=== PATIENT | female | born 1980 | race Caucasian/White ===

== ENCOUNTER 2017-03-26 16:02 | Emergency (ER) | payer OTHER ==
[2017-03-26 16:10] VITALS: TEMP 97.7
--- NOTE | 2017-03-26 16:48 | ED ---
SOB HPI - General Chief Complaint: Shortness of Breath Stated Complaint: Difficulty Breathing Time Seen by Provider: 03/26/17 16:29 Source: patient, RN notes reviewed Mode of arrival: ambulatory Limitations: no limitations - History of Present Illness Initial Comments: 36-year-old female presents emergency Department with chief complaint of back pain on the left side that started 90 minutes ago. Patient states she had a sudden onset of back pain which seems similar to when she had a pneumothorax on the right. Patient states she does have pain with deep inspiration. Patient denies any chest pain no palpitations. Denies fever or chills. Patient states that in 1996 for spontaneous pneumothorax or bright. Patient does currently take control. Patient denies any fever or chills. Patient denies any nausea vomiting. - Related Data Home Medications Medication Instructions Recorded Confirmed Ibuprofen [Motrin] 200 - 400 mg PO Q6HR PRN 03/26/17 03/26/17 Norgestimate-Ethinyl Estradiol 1 tab PO DAILY 03/26/17 03/26/17 [Ortho Tri-Cyclen 28 Tablet] Zolpidem [Ambien] 5 - 10 mg PO HS PRN 03/26/17 03/26/17 Allergies Allergy/AdvReac Type Severity Reaction Status Date / Time Penicillins AdvReac Vomiting Verified 03/26/17 16:36 Review of Systems ROS Statement: Those systems with pertinent positive or pertinent negative responses have been documented in the HPI. ROS Other: All systems not noted in ROS Statement are negative. Past Medical History Past Medical History: No Reported History History of Any Multi-Drug Resistant Organisms: None Reported Past Surgical History: Back Surgery Additional Past Surgical History / Comment(s): chest tubes and then surgery to remove "air bubbles" from lung. left adrenal gland removed. left fallopian tube removed Past Psychological History: No Psychological Hx Reported Smoking Status: Current some day smoker Past Alcohol Use History: Occasional Past Drug Use History: None Reported General Exam Limitations: no limitations General appearance: alert, in no apparent distress Neck exam: Present: normal inspection, full ROM. Absent: tenderness, meningismus, lymphadenopathy Respiratory exam: Present: normal lung sounds bilaterally. Absent: respiratory distress, wheezes, rales, rhonchi, stridor, chest wall tenderness Cardiovascular Exam: Present: regular rate, normal rhythm, normal heart sounds. Absent: systolic murmur, diastolic murmur, rubs, gallop, clicks GI/Abdominal exam: Present: soft, normal bowel sounds. Absent: distended, tenderness, guarding, rebound, rigid Back exam: Present: full ROM. Absent: tenderness, paraspinal tenderness, vertebral tenderness Neurological exam: Present: alert, oriented X3, CN II-XII intact, reflexes normal. Absent: motor sensory deficit Course Vital Signs 03/26/17 03/26/17 03/26/17 16:06 16:31 17:11 Temperature 97.7 F Pulse Rate 80 72 73 Respiratory 18 18 18 Rate Blood Pressure 113/65 119/75 102/65 O2 Sat by Pulse 100 97 96 Oximetry Medical Decision Making - Medical Decision Making 36-year-old female presented for left-sided back pain. Patient had concerns of possible pneumothorax x-ray does not show any evidence. Patient's vitals are stable here in emergency department for 2 hours. Patient's EKG, lab work within normal limits no evidence of elevated d-dimer for PE. Patient will be discharged with muscle skeletal pain return parameters were discussed. - Lab Data Result diagrams: 03/26/17 17:09 03/26/17 17:09 Lab Results 03/26/17 03/26/17 03/26/17 Range/Units 17:09 17:09 17:09 WBC 7.0 (3.8-10.6) k/uL RBC 3.93 (3.80-5.40) m/uL Hgb 13.1 (11.4-16.0) gm/dL Hct 37.7 (34.0-46.0) % MCV 95.9 (80.0-100.0) fL MCH 33.3 (25.0-35.0) pg MCHC 34.8 (31.0-37.0) g/dL RDW 12.6 (11.5-15.5) % Plt Count 273 (150-450) k/uL Neutrophils % 54 % Lymphocytes % 35 % Monocytes % 6 % Eosinophils % 2 % Basophils % 1 % Neutrophils # 3.8 (1.3-7.7) k/uL Lymphocytes # 2.5 (1.0-4.8) k/uL Monocytes # 0.5 (0-1.0) k/uL Eosinophils # 0.2 (0-0.7) k/uL Basophils # 0.0 (0-0.2) k/uL D-Dimer 0.20 (<0.60) mg/L FEU Sodium 139 (137-145) mmol/L Potassium 4.1 (3.5-5.1) mmol/L Chloride 107 (98-107) mmol/L Carbon Dioxide 23 (22-30) mmol/L Anion Gap 9 mmol/L BUN 11 (7-17) mg/dL Creatinine 0.62 (0.52-1.04) mg/dL Est GFR (MDRD) Af Amer >60 (>60 ml/min/1.73 sqM) Est GFR (MDRD) Non-Af >60 (>60 ml/min/1.73 sqM) Glucose 71 L (74-99) mg/dL Calcium 9.3 (8.4-10.2) mg/dL Troponin I (0.000-0.034) ng/mL 03/26/17 Range/Units 17:09 WBC (3.8-10.6) k/uL RBC (3.80-5.40) m/uL Hgb (11.4-16.0) gm/dL Hct (34.0-46.0) % MCV (80.0-100.0) fL MCH (25.0-35.0) pg MCHC (31.0-37.0) g/dL RDW (11.5-15.5) % Plt Count (150-450) k/uL Neutrophils % % Lymphocytes % % Monocytes % % Eosinophils % % Basophils % % Neutrophils # (1.3-7.7) k/uL Lymphocytes # (1.0-4.8) k/uL Monocytes # (0-1.0) k/uL Eosinophils # (0-0.7) k/uL Basophils # (0-0.2) k/uL D-Dimer (<0.60) mg/L FEU Sodium (137-145) mmol/L Potassium (3.5-5.1) mmol/L Chloride (98-107) mmol/L Carbon Dioxide (22-30) mmol/L Anion Gap mmol/L BUN (7-17) mg/dL Creatinine (0.52-1.04) mg/dL Est GFR (MDRD) Af Amer (>60 ml/min/1.73 sqM) Est GFR (MDRD) Non-Af (>60 ml/min/1.73 sqM) Glucose (74-99) mg/dL Calcium (8.4-10.2) mg/dL Troponin I <0.012 (0.000-0.034) ng/mL 03/26/17 18:07 EKG performed at 17:15 normal sinus rhythm, rate of 68 NC interval 162 QS duration 112 QT/QTC 374/397 Disposition Clinical Impression: Thoracic back pain, Pleuritic pain Disposition: HOME SELF-CARE Condition: Stable Instructions: Thoracic Pain (ED) Additional Instructions: Please return to the Emergency Department if symptoms worsen or any other concerns. Referrals: Kee Puga MD [Primary Care Provider] - 1-2 days Time of Disposition: 18:07
--- NOTE | 2017-03-26 16:56 | XR ---
EXAMINATION TYPE: XR chest 2V DATE OF EXAM: 03/26/2017 COMPARISON: Prior chest x-ray 08/26/2010 HISTORY: Pain with inspiration TECHNIQUE: Frontal and lateral views of the chest are obtained. FINDINGS: There is no focal air space opacity, pleural effusion, or pneumothorax seen. Right lung a pex shows probable staple line or calcification. The cardiac silhouette size is within normal limits. Surgical clips present at the gastroesophageal junction level. The osseous structures are intact. IMPRESSION: No acute cardiopulmonary process.
[2017-03-26 17:22] LABS: Basophils % (A) 1 %; CHCM 34.6; Eosinophils # (A) 0.2 k/uL (0-0.7); Eosinophils % (A) 2 %; HCT 37.7 % (34.0-46.0); HDW 2.21; HGB 13.1 gm/dL (11.4-16.0); Luc # (Auto) 0.15; Luc % (Auto) 2; Lymphocytes # (A) 2.5 k/uL (1.0-4.8); Lymphocytes % (A) 35 %; MCH 33.3 pg (25.0-35.0); MCHC 34.8 g/dL (31.0-37.0); MCV 95.9 fL (80.0-100.0); Mean Platelet Volume 7.3; Monocytes # (A) 0.5 k/uL (0-1.0); Monocytes % (A) 6 %; Neutrophils # (A) 3.8 k/uL (1.3-7.7); Neutrophils % (A) 54 %; RBC 3.93 m/uL (3.80-5.40); RDW 12.6 % (11.5-15.5)
[2017-03-26 17:30] LABS: Anion Gap 9 mmol/L; Blood Urea Nitrogen 11 mg/dL (7-17); Calcium 9.3 mg/dL (8.4-10.2); Carbon Dioxide 23 mmol/L (22-30); Chloride 107 mmol/L (98-107); Glucose 71 mg/dL (74-99); Non-African American GFR(MDRD) >60 (>60 ml/min/1.73 sqM); Potassium 4.1 mmol/L (3.5-5.1); Sodium 139 mmol/L (137-145)
[2017-03-26 18:09] VITALS: BP 125/55; PULSE 76; RESP 14
== END 2017-03-26 18:16 | disposition home or self-care (01) ==
LOC: EC 16:02
DX: R07.81 Pleurodynia (principal); M54.6 Pain in thoracic spine; Z88.0 Allergy status to penicillin; Z79.3 Long term (current) use of hormonal contraceptives; F17.200 Nicotine dependence, unspecified, uncomplicated
CPT/HCPCS: 36415; 71020; 80048; 84484; 85025; 85379; 93005; 99285

== ENCOUNTER → 2018-10-28 | Outpatient (CLI) | payer OTHER ==
--- NOTE | 2018-10-29 11:51 | MR ---
EXAMINATION TYPE: MR cervical spine wo con DATE OF EXAM: 10/28/2018 COMPARISON: CT scan 07/29/2011 HISTORY: Occipital neuralgia, left side TECHNIQUE: Multiplanar, multisequence images of the cervical spine were acquired. C2-C3: No evidence for degenerative disc disease. No disc bulge/herniation or protrusion. No Canal stenosis. Foramina are patent bilaterally. C3-C4: Very mild uncovertebral joint hypertrophy. Very minimal broad-based central disc bulging. No c anal stenosis or foraminal encroachment. C4-C5: Mild degenerative disc disease with broad-based central disc bulging and mild effacement of th ecal sac. There is uncovertebral joint hypertrophy bilaterally greater on the right. Disc bulging als o greater paracentrally to the right with small more focal protrusion seen. Mild bilateral foraminal encroachment. C5-C6: Degenerative disc disease with broad-based central disc bulging or small protrusion. Neural fo ramina are patent. Mild effacement of thecal sac but no Canal stenosis. C6-C7: No evidence for degenerative disc disease. No disc bulge/herniation or protrusion. No Canal stenosis. Foramina are patent bilaterally. C7-T1: No evidence for degenerative disc disease. No disc bulge/herniation or protrusion. No Canal stenosis. Foramina are patent bilaterally. Cervical segments are intact. There is normal alignment. Cervical spinal cord is of normal signal. Craniovertebral junction relationships are within normal limits. IMPRESSION: 1. At C4-C5 there is broad-based central disc bulging with more focal right paracentral and lateral d isc protrusion resulting in foraminal encroachment bilaterally greater on the right. Effacement of th ecal sac but no spinal cord contact. 2. Degenerative disc disease with broad-based central disc bulging or small protrusion C5-C6 but no c anal stenosis. No foraminal encroachment. 3. Multilevel mild degenerative disc disease.
== END ==
LOC: RADMRIMAIN 16:50
PROVIDERS: ATTEND Psychiatry & Neurology Neurology
DX: M50.221 Other cervical disc displacement at C4-C5 level (principal); M50.322 Other cervical disc degeneration at C5-C6 level
CPT/HCPCS: 72141

== ENCOUNTER 2021-06-06 14:10 | Outpatient (CLI) | payer OTHER ==
[2021-06-06 14:46] LABS: Glucose,Whole Blood 83 mg/dL (75-99)
[2021-06-06 15:48] VITALS: BP 115/69; PULSE 91; RESP 16; TEMP 98.1
--- NOTE | 2021-06-16 11:31 | P.MSEPDOC ---
Presenting Problems - Arrival Data Date of Arrival on Unit: 06/06/21 Time of Arrival on Unit: 14:10 Mode of Transport: Ambulatory - Complaint OB-Reason for Admission/Chief Complaint: Other Comment: loss of vision, FORTE Medical History - Information : 4 Para: 3 Term: 1 : 2 Abortions: Spontaneous or Elective: 0 Number of Living Children: 3 - Gestational Age Gestational Age by MILA (wks/days): 30 Weeks and 3 Days - History Complications: Prior , Smoker Review of Systems - Review of Systems Constitutional: No problems Breast: No problems ENT: No problems Cardiovascular: No problems Respiratory: No problems Gastrointestinal: No problems Genitourinary: No problems Musculoskeletal: No problems Neurological: No problems Skin: No problems Vital Signs - Temperature Temperature: 98.1 F Temperature Source: Oral - Pulse Pulse Oximetery Pulse Rate: 91 Pulse Assessment Method: Pulse Oximetry - Respirations Respiratory Rate: 16 Oxygen Delivery Method: Room Air O2 Sat by Pulse Oximetry: 96 - Blood Pressure Right Arm Blood Pressure: 115/69 Blood Pressure Mean: 84 Blood Pressure Source: Automatic Cuff Medical Screen Scoring - Cervical Exam Dilation (cm): 0 Effacement (%): 0 Station: -2 Membranes: Intact - Uterine Contractions Intensity: Mild Resting: Soft to palpation - Assessment - Baby A Baseline FHR: 140 Heart Rate - NICHD Category: Category I (Normal) NST: Reactive Physician Notification - Physician Notified Physician Notified Date: 06/06/21 Physician Notified Time: 15:05 Physician: Roxanna Zhang Order Received: Yes - Notification Comment Comment: Dr. Zhang called back. Report given on maternal/ status, complaints of FORTE. and "loss of vision/kalidoscope vision" that started around 1315 today. Pt denies hx of. FORTE or BP issues. BP 115/69, HR 91, NST reactive, irregular contractions and uterine. irritability noted on monitor. FFN collected and SVE closed/thick/high. Blood sugar 83. Per Dr. Zhang pt possibly had an occular migrane. Orders to discharge home with. instructions to increase oral fluids, try caffeine, take 1,000mg tylenol q6hrs, and call office tomorrow. to be seen on friday. Maternal Triage Index - Maternal Triage Index Presenting for scheduled procedure w/no complaint: No - Stat/Priority 1 Stat Priority 1: No - Urgent/Priority 2 Urgent Priority 2: Yes Provider Notified: Roxanna Zhang Provider Notified Time: 15:05 Criteria Met for Priority 2: 30 3/7 weeks, loss of vision, FORTE, and abdominal tightening with irregular contractions and uterine irritability Disposition - Disposition OB Disposition: Discharge to home Discharge Date: 06/06/21 Discharge Time: 15:20 I agree with the RN Medical Screening Exam: Yes Physician's MSE Comment: I have neither seen nor examined the patient. Case reviewed; plan agreed upon as documented in EMR&OBIX.: Yes Diagnosis: RELATED CONDITIONS, UNSPECIFIED, THIRD TRIMESTER
== END 2021-06-06 15:20 | disposition home or self-care (01) ==
LOC: FBPOP 14:10
PROVIDERS: ATTEND Obstetrics & Gynecology
DX: O99.891 Other specified diseases and conditions complicating pregnancy (principal); H54.7 Unspecified visual loss; O26.893 Other specified pregnancy related conditions, third trimester; R51.9 Headache, unspecified; O99.333 Smoking (tobacco) complicating pregnancy, third trimester; F17.200 Nicotine dependence, unspecified, uncomplicated; Z3A.30 30 weeks gestation of pregnancy; Z88.0 Allergy status to penicillin
CPT/HCPCS: 59025; G0463; 99213

== ENCOUNTER → 2022-09-26 | Outpatient (CLI) | payer BC ==
[2022-09-26 22:49] LABS: Basophils # (A) 0.05 X 10*3/uL (0.00-0.10); Basophils % (A) 0.7 %; Eosinophils # (A) 0.23 X 10*3/uL (0.04-0.35); HCT 40.6 % (37.2-46.3); HGB 13.4 g/dL (12.0-15.0); Immature Grans, Automated 0.3 %; Lymphocytes # (A) 2.59 X 10*3/uL (0.90-5.00); Lymphocytes % (A) 34.3 %; MCH 31.8 pg (27.0-32.0); MCV 96.4 fL (80.0-97.0); Mean Platelet Volume 9.4 fL (9.5-12.2); Monocytes # (A) 0.88 X 10*3/uL (0.20-1.00); Monocytes % (A) 11.7 %; NRBC Per 100 WBC 0 /100 WBCS (0.0-0.0); Neutrophils # (A) 3.78 X 10*3/uL (1.80-7.70); Platelet Count 339 X 10*3/uL (140-440); RBC 4.21 X 10*6/uL (4.10-5.20); WBC 7.55 X 10*3/uL (4.50-10.00)
[2022-09-26 23:55] LABS: African American GFR (CKD) 128.8 (60.0-200.0); Albumin 4.7 g/dL (3.8-4.9); Albumin/Globulin Ratio 1.66 (1.60-3.17); Anion Gap 14.2 mmol/L (10.00-18.00); BUN/Creat Ratio 15.75 Ratio (12.00-20.00); Blood Urea Nitrogen 9.4 mg/dL (9.0-27.0); Calcium 9.8 mg/dL (8.7-10.3); Carbon Dioxide 19.6 mmol/L (20.0-27.5); Globulin 2.8 g/dL (1.6-3.3); Non-African American GFR(CKD) 111.2 (60.0-200.0); T4, Free (Free Thyroxine) 1.07 ng/dL (0.800-1.800); Total Bilirubin 0.5 mg/dL (0.30-1.20); Total Protein 7.5 g/dL (6.2-8.2)
== END | disposition home or self-care (01) ==
LOC: LABWHC1 15:57
PROVIDERS: ATTEND Nurse Practitioner Acute Care
DX: E55.9 Vitamin D deficiency, unspecified (principal); E53.9 Vitamin B deficiency, unspecified; H53.9 Unspecified visual disturbance; R42 Dizziness and giddiness; R90.82 White matter disease, unspecified
CPT/HCPCS: 36415; 80053; 82306; 82607; 84207; 84439; 84443; 84481; 85025